=== PATIENT | female | born 1980 | race African-American/Black ===

== ENCOUNTER 2020-09-22 18:01 | Emergency (ER) | payer MEDICAID ==
[~2020-09-22] VITALS: Ht 172.7 cm; Wt 65.8 kg
[2020-09-22 18:04] VITALS: BP 148/106
[2020-09-22 20:43] VITALS: BP 129/94
== END 2020-09-22 20:33 ==
LOC: MED 18:01
DX: R07.9 Chest pain, unspecified (principal); I51.9 Heart disease, unspecified
CPT/HCPCS: 36415; 71045; 84484; 93005; 99285